=== PATIENT | male | born 1980 | race Caucasian/White ===

== ENCOUNTER 2017-11-25 20:50 | Emergency (ER) | payer OTHER ==
[~2017-11-25] VITALS: Ht 185.4 cm; Wt 106.6 kg
[2017-11-25] MEDS ORDERED: NORCO 7.5-3251 EACH PO (21:22)
[2017-11-25] MEDS ORDERED: AUGMENTIN 875-1 EACH PO (21:22)
[2017-11-25] MEDS ORDERED: NABUMETONE 750750 M1 PO (21:22)
[2017-11-25] MEDS ORDERED: CENTANY30 GM TOP (21:23)
[2017-11-25 22:07] VITALS: BP 164/88
== END 2017-11-25 22:08 | disposition home or self-care (01) ==
LOC: M.ERS 20:50
DX: S61.011A Laceration without foreign body of right thumb without damage to nail, initial encounter (principal); Z88.8 Allergy status to other drugs, medicaments and biological substances; W54.0XXA Bitten by dog, initial encounter; Y93.89 Activity, other specified; Y92.89 Other specified places as the place of occurrence of the external cause; Y99.8 Other external cause status

== ENCOUNTER → 2020-04-16 | Outpatient (CLI) | payer OTHER ==
[~2020-04-16] MED LIST: AUGMENTIN 875-1 EACH PO; CENTANY30 GM TOP; NABUMETONE 750750 M1 PO; NORCO 7.5-3251 EACH PO
[2020-04-16 07:15] LABS: ABSOLUTE BASOPHILS 0.1 thou/uL (0.0-0.2); ABSOLUTE EOSINOPHILS 0.3 thou/uL (0.0-0.7); ABSOLUTE LYMPHOCYTES 2.5 thou/uL (0.8-5.3); ABSOLUTE MONOCYTES 0.5 thou/uL (0.0-1.2); ABSOLUTE NEUTROPHILS 4.5 thou/uL (1.6-8.1); BASOPHILS 0.7 %; EOSINOPHILS 3.3 %; HEMATOCRIT 45.8 % (42.0-52.0); HEMOGLOBIN 15.7 gm/dL (14.0-18.0); MCH 28.1 pg (26.0-34.0); MCHC 34.4 g/dL (28.0-37.0); MCV 81.9 fL (80.0-100.0); MONOCYTES 6.6 %; MPV 8.3 fl. (7.2-11.1); NUCLEATED RBCS 0 /100WBC; PLATELET COUNT* 223 thou/uL (150-400); POLYS 57.4 %; RBC 5.59 mil/uL (4.50-6.00); RDW-CV 13.4 % (10.5-14.5); WBC 7.9 thou/uL (4.0-11.0)
[2020-04-16 07:41] LABS: ALBUMIN 4.5 g/dL (3.4-5.0); ANION GAP 10 mmol/L (7-16); BUN 17 mg/dL (7-18); CALCIUM 8.7 mg/dL (8.5-10.1); CHLORIDE 107 mmol/L (98-107); CO2 25 mmol/L (21-32); CREATININE 1.4 mg/dL (0.6-1.3); GLUCOSE 121 mg/dL (70-99); POTASSIUM 4.3 mmol/L (3.5-5.1); SGOT 28 U/L (15-37); SGPT 63 U/L (30-65); SODIUM 142 mmol/L (136-145); TOTAL BILIRUBIN 0.3 mg/dL (<0.1-1.0); TOTAL PROTEIN 8.1 g/dL (6.4-8.2)
[2020-04-16 08:02] LABS: ALKALINE PHOSPHATASE 84 U/L (46-116); CHOLESTEROL 203 mg/dL (<200); SERUM ASSESSMENT Clear; TRIGLYCERIDE 173 mg/dL (<150); VLDL 35 mg/dL (<40)
[2020-04-16 08:03] LABS: HDL CHOLESTEROL 28 mg/dL (>40); LDL CHOLESTEROL 141 mg/dL (<100); TC:HDL 7.3 Ratio (Not establshd)
[2020-04-16 08:21] LABS: URINE BILIRUBIN NEGATIVE (Negative); URINE BLOOD NEGATIVE (Negative); URINE CLARITY CLEAR; URINE COLOR YELLOW; URINE GLUCOSE-RANDOM NEGATIVE (Negative); URINE KETONES NEGATIVE (Negative); URINE LEUKOCYTES NEGATIVE (Negative); URINE NITRITE NEGATIVE (Negative); URINE PROTEIN NEGATIVE (Negative); URINE SPECIFIC GRAVITY >= 1.030 (1.005-1.030); URINE UROBILINOGEN 0.2 E.U./dl (0.2-1.0)
[2020-04-16 23:06] LABS: TESTOSTERONE 364 ng/dL (264-916)
== END ==
LOC: M.LAB 06:51
PROVIDERS: ATTEND Family Medicine
DX: Z00.01 Encounter for general adult medical examination with abnormal findings (principal); R53.83 Other fatigue; E66.9 Obesity, unspecified